=== PATIENT | female | born 1990 | race Caucasian/White ===

== ENCOUNTER 2020-04-11 00:18 | Emergency (ER) | payer OTHER ==
[~2020-04-11] VITALS: Ht 152.4 cm; Wt 77.1 kg
[~2020-04-11 00:18] MED LIST: CLONAZEPAM1 MG; VERAPAMIL ER180 MG; [UNRECOGNIZED DRUG - OTHER]
[2020-04-11] MEDS ORDERED: PEPCID AC20 MG PO (05:59)
[2020-04-11] MEDS ORDERED: ONDANSETRON HCL4 MG PO (05:59)
[2020-04-11] MEDS ORDERED: ACETAMINOPHEN650 M2 PO (05:59)
== END 2020-04-11 06:18 | disposition home or self-care (01) ==
LOC: ER 00:18
DX: R10.33 Periumbilical pain (principal); K52.89 Other specified noninfective gastroenteritis and colitis

== ENCOUNTER 2020-05-08 10:12 | Emergency (ER) | payer OTHER ==
[~2020-05-08] VITALS: Ht 157.5 cm; Wt 73.9 kg
[~2020-05-08 10:12] MED LIST changes: +ACETAMINOPHEN650 M2 PO; +ONDANSETRON HCL4 MG PO; +PEPCID AC20 MG PO
[2020-05-08] MEDS ORDERED: ONDANSETRON ODT4 MG SL (16:15)
[2020-05-08] MEDS ORDERED: PEPCID AC20 MG PO (16:15)
== END 2020-05-08 16:49 | disposition home or self-care (01) ==
LOC: ER 10:12
DX: O26.851 Spotting complicating pregnancy, first trimester (principal); O26.891 Other specified pregnancy related conditions, first trimester; R10.2 Pelvic and perineal pain; Z3A.01 Less than 8 weeks gestation of pregnancy

== ENCOUNTER 2020-11-20 12:52 | Emergency (ER) | payer OTHER ==
[~2020-11-20] VITALS: Ht 157.5 cm; Wt 78.5 kg
[~2020-11-20 12:52] MED LIST changes: +ONDANSETRON ODT4 MG SL
[2020-11-20] MEDS ORDERED: LEVETIRACETAM750 MG PO (12:59)
[2020-11-20] MEDS ORDERED: FOLIC ACID1 MG PO (13:00)
== END 2020-11-20 14:32 | disposition home or self-care (01) ==
LOC: ER 12:52
DX: R10.2 Pelvic and perineal pain (principal)

== ENCOUNTER 2020-12-01 07:36 | Emergency (ER) | payer OTHER ==
[~2020-12-01] VITALS: Ht 157.5 cm; Wt 78.9 kg
[~2020-12-01 07:36] MED LIST changes: +FOLIC ACID1 MG PO; +LEVETIRACETAM750 MG PO
== END 2020-12-01 11:37 | disposition home or self-care (01) ==
LOC: ER 07:36
DX: Z00.8 Encounter for other general examination (principal)